=== PATIENT | male | born 1980 | race Caucasian/White ===

== ENCOUNTER 2019-03-29 17:02 | Emergency (ER) | payer SELFPAY ==
[~2019-03-29] VITALS: Ht 170.2 cm; Wt 73.5 kg
[2019-03-29 17:25] VITALS: Ht 170.2 cm; Wt 73.5 kg
[2019-03-29 18:37] LABS: BASOPHIL % 0.5 % (0-2); PLATELET COUNT 240 x10^3mcL (130-400); RED CELL DISTRIBUTION WIDTH 12.9 % (11.5-14.5)
[2019-03-29 18:39] LABS: CALCIUM 8.8 mg/dL (8.5-10.1); CARBON DIOXIDE 29.3 mmol/L (21-32); CHLORIDE SERUM 102 mmol/L (98-107); CREATININE SERUM 0.9 mg/dL (0.7-1.3); GFR1 > 60 mL/min; GLUCOSE SERUM 110 mg/dL (74-106); SODIUM SERUM 138 mmol/L (136-145)
[2019-03-29 18:45] LABS: ALKALINE PHOSPHATASE 86 U/L (46-116); ALT/SGPT 37 U/L (16-63); AST/SGOT 17 U/L (15-37); BILIRUBIN TOTAL 0.55 mg/dL (0.20-1.00); LIPASE 148 IU/L (73-393); TOTAL PROTEIN, SERUM 7.2 g/dL (6.4-8.2)
[2019-03-29 19:12] LABS: microscopic required? YES; urine erythrocyte NEGATIVE (NEGATIVE)
[2019-03-29 20:38] VITALS: BP 103/61
== END 2019-03-29 20:38 | disposition home or self-care (01) ==
LOC: ED 17:02
PROVIDERS: Emergency Medicine
DX: K59.00 Constipation, unspecified (principal); N39.0 Urinary tract infection, site not specified
CPT/HCPCS: J1885; J2405